=== PATIENT | female | born 1985 | race African-American/Black ===

== ENCOUNTER 2022-01-13 11:56 | Day surgery (SDC) | payer OTHER ==
[~2022-01-13] VITALS: Ht 160 cm; Wt 62.1 kg
[~2022-01-13 11:56] MED LIST: NS 1,000 ML IV ONE; PANT40TA29 PO
[2022-01-13] MEDS ORDERED: fentaNYL 100 MCG/2 ML INJECTION As Ordered ONE (13:55)
[2022-01-13] MEDS ORDERED: LIDOCAINE 2% 100MG/5ML SDV (FOR ANES.) As Ordered ONE (13:55)
[2022-01-13] MEDS ORDERED: propofoL 200 MG/20 ML VIAL As Ordered ONE (13:55)
[2022-01-13 14:35] VITALS: BP 124/56
== END 2022-01-13 14:44 | disposition home or self-care (01) ==
LOC: M OPP 11:56
PROVIDERS: ATTEND Internal Medicine Gastroenterology
DX: K29.60 Other gastritis without bleeding (principal); K22.89 Other specified disease of esophagus; R12 Heartburn; F41.9 Anxiety disorder, unspecified; Z79.899 Other long term (current) drug therapy
CPT/HCPCS: 43239; 88305; J3010

== ENCOUNTER 2022-04-14 14:30 | Inpatient (IN) | payer OTHER ==
[~2022-04-14] VITALS: Ht 154.9 cm; Wt 60.6 kg
[~2022-04-14 14:30] MED LIST changes: -NS 1,000 ML IV ONE
[2022-04-14 15:12] LABS: HEMATOCRIT 38.8 % (36.0-47.0); HEMOGLOBIN 12.6 g/dl (12.0-15.5); MEAN CORPUSCULAR HEMOGLOBIN 26.9 pg (27.0-33.0); MEAN CORPUSCULAR HGB CONC 32.5 g/dl (32.0-36.5); MEAN CORPUSCULAR VOLUME 82.9 fl (80.0-96.0); PLATELET COUNT, AUTOMATED 295 10^3/uL (150-450); RED BLOOD COUNT 4.68 10^6/uL (4.00-5.40); WHITE BLOOD COUNT 7.3 10^3/uL (4.0-10.0)
[2022-04-14 15:52] LABS: ETHYL ALCOHOL (ETHANOL) 0.004 % (0.000-0.010)
[2022-04-14 15:53] LABS: ACETAMINOPHEN LEVEL < 2.0 UG/ML (10.0-20.0)
[2022-04-14 15:54] LABS: ALBUMIN 4.1 G/DL (3.2-5.2); ALKALINE PHOSPHATASE 106 U/L (46-116); ALT/SGPT 29 U/L (7.0-40); AST/SGOT 30 U/L (<34); BILIRUBIN,DIRECT 0.1 MG/DL (<0.4); BILIRUBIN,TOTAL 0.4 MG/DL (0.3-1.2); BLOOD UREA NITROGEN 16 MG/DL (9-23); CALCIUM LEVEL 9.5 MG/DL (8.5-10.1); CARBON DIOXIDE LEVEL 22 MMOL/L (20-31); CHLORIDE LEVEL 107 MMOL/L (98-107); CREATININE FOR GFR 0.69 MG/DL (0.55-1.30); GLOMERULAR FILTRATION RATE > 60.0 (>60); GLUCOSE, FASTING 98 MG/DL (60-100); POTASSIUM SERUM 4.2 MMOL/L (3.5-5.1); SALICYLATE LEVEL < 3.0 MG/DL (<30); SODIUM LEVEL 138 MMOL/L (136-145); TOTAL PROTEIN 8.1 G/DL (5.7-8.2)
[2022-04-14 15:56] LABS: THYROID STIMULATING HORMONE 0.714 uIU/ML (0.55-4.78)
[2022-04-14 16:06] LABS: HCG, SERUM QUALITATIVE NEGATIVE (NEGATIVE)
[2022-04-14] MEDS ORDERED: ONDANSETRON 4MG ORAL DISINTEGRATING TAB PO ONE (16:50)
[2022-04-14 18:05] LABS: APPEARANCE, URINE MANUAL CLEAR (CLEAR); COLOR, URINE MANUAL YELLOW (YELLOW)
[2022-04-14 18:07] LABS: BILIRUBIN, URINE MANUAL NEGATIVE (NEGATIVE); BLOOD URINE MANUAL NEGATIVE (NEGATIVE); GLUCOSE, URINE (UA) MANUAL NEGATIVE (NEGATIVE); KETONE, URINE MANUAL NEGATIVE (NEGATIVE); LEUKOCYTE ESTERASE, URINE MAN POSITIVE (NEGATIVE); NITRITE, URINE MANUAL NEGATIVE (NEGATIVE); PROTEIN, URINE MANUAL NEGATIVE (NEGATIVE); SPECIFIC GRAVITY,URINE MANUAL 1.015 (1.002-1.035); UROBILINOGEN, URINE MANUAL NORMAL (NORMAL)
[2022-04-14 18:09] LABS: AMPHETAMINES LEVEL URINE NEGATIVE (NEGATIVE); BENZODIAZEPINES URINE NEGATIVE (NEGATIVE)
[2022-04-14 18:10] LABS: BARBITURATES URINE NEGATIVE (NEGATIVE); CANNABINOIDS URINE NEGATIVE (NEGATIVE); COCAINE METABOLITE URINE NEGATIVE (NEGATIVE); METHADONE URINE NEGATIVE (NEGATIVE); OPIATES URINE NEGATIVE (NEGATIVE); PHENCYCLIDINE URINE NEGATIVE (NEGATIVE)
[2022-04-14 18:13] LABS: RSV AMPLIFICATION NEGATIVE (NEGATIVE)
[2022-04-14 18:15] LABS: BACTERIA, URINE SMALL AMOUNT; HYALINE CAST, URINE 0-1 /lpf (0-1); MUCUS, URINE LARGE AMOUNT (NEGATIVE); SQUAMOUS EPITHELIAL CELL URINE LARGE AMOUNT /hpf (SMALL AMT)
[2022-04-14] MEDS ORDERED: MULTTAB20 PO (18:58)
[2022-04-14] MEDS ORDERED: VENL75CA47 PO (18:58)
[2022-04-14] MEDS ORDERED: VITA100093 PO (18:58)
[2022-04-14] MEDS ORDERED: BISACODYL 5MG TAB PO ONE (21:10)
[2022-04-15] MEDS ORDERED: VITA500038 PO (08:49)
[2022-04-15] MEDS ORDERED: PANT20TA6 PO (08:49)
[2022-04-15] MEDS ORDERED: VENL37.598 PO (08:49)
[2022-04-15] MEDS ORDERED: TOPI50TA9 PO (08:49)
[2022-04-15] MEDS ORDERED: MAXA10TA15 PO (08:49)
[2022-04-15] MEDS ORDERED: B-2100TA PO (08:49)
[2022-04-15] MEDS ORDERED: VENL150C43 PO (08:49)
[2022-04-15] MEDS ORDERED: HOME MED LIST COMPLETE! XX SCH (08:50)
[2022-04-15] MEDS ORDERED: ACETAMINOPHEN TAB 650MG DOSE (2X325MG) PO PRN (17:30)
[2022-04-15] MEDS ORDERED: MAALOX 30 ML SUSP *UDC PO PRN (17:30)
[2022-04-15] MEDS ORDERED: NICOTINE 21MG/24HR 1 EA TRANSDERMAL TD PRN (17:30)
[2022-04-15] MEDS ORDERED: MOM 30ML SUSPENSION UDC PO PRN (17:30)
[2022-04-15] MEDS ORDERED: traZODone 50 MG TAB PO PRN (17:30)
[2022-04-15 19:22] VITALS: BP 145/76
[2022-04-16 06:18] VITALS: BP 143/65
[2022-04-16] MEDS ORDERED: VENLAFAXINE **XR** 75MG CAPSULE PO SCH (09:00)
[2022-04-16] MEDS: PANTOPRAZOLE 20 MG TAB PO SCH ×2 (09:00→15:23)
[2022-04-16] MEDS ORDERED: VENLAFAXINE **XR** 37.5 MG CAPSULE PO SCH (09:00)
[2022-04-16] MEDS: VITAMIN D 1,000 INTERNATIONAL UNITS TABLET PO SCH (14:16)
[2022-04-16] MEDS: PRENATAL VITAMINS CHEWABLE TABLET PO SCH (15:23)
[2022-04-16] MEDS: VENLAFAXINE **XR** 75MG CAPSULE PO SCH (15:23)
[2022-04-16] MEDS ORDERED: EFFE75CA2 PO (15:41)
[2022-04-16 16:40] VITALS: BP 120/80
[2022-04-16] MEDS ORDERED: ALBUTEROL 90 MCG/ACT 8GM HFA INHALER INH ONE (17:55)
[2022-04-16] MEDS: TOPIRAMATE (TopAMAX) 25 MG TAB PO SCH (21:03)
[2022-04-16] MEDS: ALBUTEROL 90 MCG/ACT 8GM HFA INHALER INH SCH (21:04)
[2022-04-17 06:18] VITALS: BP 106/64
[2022-04-17] MEDS: ALBUTEROL 90 MCG/ACT 8GM HFA INHALER INH SCH ×4 (07:58→21:49)
[2022-04-17] MEDS: VITAMIN D 1,000 INTERNATIONAL UNITS TABLET PO SCH (07:59)
[2022-04-17] MEDS: PRENATAL VITAMINS CHEWABLE TABLET PO SCH (07:59)
[2022-04-17] MEDS: PANTOPRAZOLE 20 MG TAB PO SCH (07:59)
[2022-04-17] MEDS: VENLAFAXINE **XR** 75MG CAPSULE PO SCH (08:00)
[2022-04-17] MEDS ORDERED: OMEPRAZOLE 20MG CAP PO SCH (09:00)
[2022-04-17] MEDS ORDERED: VITAMIN D 1,000 INTERNATIONAL UNITS TABLET PO SCH (09:00)
[2022-04-17] MEDS ORDERED: RAMELTEON 8 MG TAB (ROZEREM) PO PRN (11:20)
[2022-04-17 16:47] VITALS: BP 123/67
[2022-04-17] MEDS: TOPIRAMATE (TopAMAX) 25 MG TAB PO SCH (21:51)
[2022-04-18 06:39] VITALS: BP 125/62
[2022-04-18] MEDS: ALBUTEROL 90 MCG/ACT 8GM HFA INHALER INH SCH ×4 (07:47→21:42)
[2022-04-18] MEDS: VENLAFAXINE **XR** 75MG CAPSULE PO SCH (07:48)
[2022-04-18] MEDS: VITAMIN D 1,000 INTERNATIONAL UNITS TABLET PO SCH (07:48)
[2022-04-18] MEDS: PANTOPRAZOLE 20 MG TAB PO SCH (07:48)
[2022-04-18] MEDS: PRENATAL VITAMINS CHEWABLE TABLET PO SCH (07:48)
[2022-04-18 16:19] VITALS: BP 129/77
[2022-04-18] MEDS: TOPIRAMATE (TopAMAX) 25 MG TAB PO SCH (21:42)
[2022-04-19 06:08] VITALS: BP 136/66
[2022-04-19] MEDS: PANTOPRAZOLE 20 MG TAB PO SCH (08:22)
[2022-04-19] MEDS: VITAMIN D 1,000 INTERNATIONAL UNITS TABLET PO SCH (08:22)
[2022-04-19] MEDS: PRENATAL VITAMINS CHEWABLE TABLET PO SCH (08:22)
[2022-04-19] MEDS: ALBUTEROL 90 MCG/ACT 8GM HFA INHALER INH SCH ×4 (08:22→21:02)
[2022-04-19] MEDS: VENLAFAXINE **XR** 75MG CAPSULE PO SCH (08:22)
[2022-04-19 18:30] VITALS: BP 144/88
[2022-04-19] MEDS: TOPIRAMATE (TopAMAX) 25 MG TAB PO SCH (21:02)
[2022-04-20 06:04] VITALS: BP 132/62
[2022-04-20] MEDS: VENLAFAXINE **XR** 75MG CAPSULE PO SCH (08:21)
[2022-04-20] MEDS: VITAMIN D 1,000 INTERNATIONAL UNITS TABLET PO SCH (08:21)
[2022-04-20] MEDS: ALBUTEROL 90 MCG/ACT 8GM HFA INHALER INH SCH ×4 (08:22→21:52)
[2022-04-20] MEDS: PRENATAL VITAMINS CHEWABLE TABLET PO SCH (08:22)
[2022-04-20] MEDS: PANTOPRAZOLE 20 MG TAB PO SCH (08:22)
[2022-04-20 18:14] VITALS: BP 127/76
[2022-04-20] MEDS: TOPIRAMATE (TopAMAX) 25 MG TAB PO SCH (21:53)
[2022-04-21 06:15] VITALS: BP 117/58
[2022-04-21] MEDS: ALBUTEROL 90 MCG/ACT 8GM HFA INHALER INH SCH (08:48)
[2022-04-21] MEDS: VENLAFAXINE **XR** 75MG CAPSULE PO SCH (08:50)
[2022-04-21] MEDS: PRENATAL VITAMINS CHEWABLE TABLET PO SCH (08:50)
[2022-04-21] MEDS: PANTOPRAZOLE 20 MG TAB PO SCH (08:50)
[2022-04-21] MEDS: VITAMIN D 1,000 INTERNATIONAL UNITS TABLET PO SCH (08:50)
[2022-04-21] MEDS ORDERED: EFFE75CA2 PO (09:32)
== END 2022-04-21 11:16 | disposition home or self-care (01) | DRG 881 ==
LOC: M ED 14:30 → EDBD 14:30 → M ED INP 04-15 17:29 → M PSY 04-15 18:58
PROVIDERS: ADMIT Psychiatry & Neurology Psychiatry; ATTEND Psychiatry & Neurology Psychiatry
DX: F32.A Depression, unspecified (principal); F43.21 Adjustment disorder with depressed mood; F17.200 Nicotine dependence, unspecified, uncomplicated; R06.02 Shortness of breath; R07.89 Other chest pain; F41.9 Anxiety disorder, unspecified; Z56.6 Other physical and mental strain related to work; Z79.899 Other long term (current) drug therapy

== ENCOUNTER 2022-09-18 00:58 | Emergency (ER) | payer OTHER ==
[~2022-09-18] VITALS: Ht 160 cm; Wt 61.3 kg
[~2022-09-18 00:58] MED LIST changes: +B-2100TA PO; +EFFE75CA2 PO; +MULTTAB20 PO; +PANT20TA6 PO; +RIZA10TA66 PO; +TOPI-254 PO; +VENL150C43 PO; +VENL37.598 PO; +VENL75CA47 PO; +VITA100093 PO; +VITA500038 PO
[2022-09-18 00:59] VITALS: BP 138/70; TEMP 97; O2SAT 99
[2022-09-18] MEDS ORDERED: ZOLO50TA PO (01:04)
== END 2022-09-18 03:13 | disposition left against medical advice (07) ==
LOC: M ED 00:58
DX: Z53.21 Procedure and treatment not carried out due to patient leaving prior to being seen by health care provider (principal)

== ENCOUNTER 2023-01-04 12:24 | Outpatient (CLI) | payer OTHER ==
[~2023-01-04] VITALS: Ht 160 cm; Wt 67.1 kg
[~2023-01-04 12:24] MED LIST changes: +ALBUTEROL SULFATE 2.5MG/0.5ML INH NEB SOLN INH PRN; +EPINEPHrine INJ 1 MG/ML 1ML AMP IM PRN; +IRON SUCROSE 25 MG in NS 23.75 ML IV ONE; +IRON SUCROSE 275 MG in NS 250 ML IV ONE; +NS 1,000 ML IV SCH; +ZOLO50TA PO; +diphenhydrAMINE 50MG/ML VIAL IV PRN; +methylPREDNISolone 125MG 2ML VIAL IV PRN
[2023-01-04 12:25] VITALS: BP 122/56; O2SAT 100
[2023-01-04 15:45] VITALS: BP 128/60; O2SAT 100
== END 2023-01-04 15:45 | disposition home or self-care (01) ==
LOC: M INFU 12:24
PROVIDERS: ATTEND Nurse Practitioner Women's Health
DX: D64.9 Anemia, unspecified (principal)
CPT/HCPCS: 96365; 96366; J1756

== ENCOUNTER 2023-01-11 13:20 | Outpatient (CLI) | payer OTHER ==
[~2023-01-11] VITALS: Ht 160 cm; Wt 66.5 kg
[~2023-01-11 13:20] MED LIST changes: -IRON SUCROSE 25 MG in NS 23.75 ML IV ONE; -IRON SUCROSE 275 MG in NS 250 ML IV ONE
[2023-01-11] MEDS ORDERED: IRON SUCROSE 300 MG in NS 250 ML OVER 90 MIN. IV ONE (13:30)
[2023-01-11 13:40] VITALS: BP 113/58; O2SAT 100
[2023-01-11 16:40] VITALS: BP 123/56; O2SAT 100
== END 2023-01-11 16:40 ==
LOC: M INFU 13:20
PROVIDERS: ATTEND Nurse Practitioner Women's Health
DX: D64.9 Anemia, unspecified (principal)
CPT/HCPCS: 96365; 96366; J1756

== ENCOUNTER 2023-01-20 10:00 | Outpatient (CLI) | payer OTHER ==
[~2023-01-20] VITALS: Ht 160 cm; Wt 66.5 kg
[~2023-01-20 10:00] MED LIST changes: +IRON SUCROSE 300 MG in NS 250 ML OVER 90 MIN. IV ONE
[2023-01-20 12:40] VITALS: BP 122/68; O2SAT 98
== END 2023-01-20 12:40 ==
LOC: M INFU 10:00
PROVIDERS: ATTEND Nurse Practitioner Women's Health
DX: D64.9 Anemia, unspecified (principal)
CPT/HCPCS: 96365; J1756

== ENCOUNTER 2023-03-01 09:30 | Outpatient (CLI) | payer OTHER ==
[~2023-03-01] VITALS: Ht 160 cm; Wt 70.3 kg
[~2023-03-01 09:30] MED LIST changes: -ALBUTEROL SULFATE 2.5MG/0.5ML INH NEB SOLN INH PRN; -EPINEPHrine INJ 1 MG/ML 1ML AMP IM PRN; -IRON SUCROSE 300 MG in NS 250 ML OVER 90 MIN. IV ONE; -NS 1,000 ML IV SCH; +TOPI-21 PO; -TOPI-254 PO; -diphenhydrAMINE 50MG/ML VIAL IV PRN; -methylPREDNISolone 125MG 2ML VIAL IV PRN
[2023-03-01 09:56] VITALS: BP 133/70
[2023-03-01] MEDS ORDERED: HOME MED LIST COMPLETE! XX SCH (10:05)
[2023-03-01 11:04] VITALS: BP 119/70
== END 2023-03-01 13:20 | disposition home or self-care (01) ==
LOC: M LDO 09:30
PROVIDERS: ATTEND Obstetrics & Gynecology
DX: O36.8330 Maternal care for abnormalities of the fetal heart rate or rhythm, third trimester, not applicable or unspecified (principal); Z3A.36 36 weeks gestation of pregnancy
CPT/HCPCS: 59025; 76815; 76819; 76820; G0463

== ENCOUNTER 2023-03-05 00:32 | Inpatient (IN) | payer OTHER ==
[2023-03-05] VITALS (13 sets, daily range): BP systolic 98–157; BP diastolic 60–80; O2SAT 98
[~2023-03-05] VITALS: Ht 160 cm; Wt 68.9 kg
[2023-03-05 02:58] LABS: APPEARANCE, URINE HAZY (CLEAR); BACTERIA, URINE AUTO NEGATIVE (NEGATIVE); BILIRUBIN, URINE AUTO NEGATIVE (NEGATIVE); BLOOD, URINE BLOOD NEGATIVE (NEGATIVE); COLOR, URINE YELLOW (YELLOW); GLUCOSE, URINE (UA) AUTO 2+ mg/dL (NEGATIVE); KETONE, URINE AUTO NEGATIVE (NEGATIVE); LEUKOCYTE ESTERASE, URINE AUTO 2+ (NEGATIVE); MUCUS, URINE SMALL (NEGATIVE); NITRITE, URINE AUTO NEGATIVE (NEGATIVE); PROTEIN, URINE AUTO NEGATIVE (NEGATIVE); RBC, URINE AUTO 1 /HPF (0-3); SQUAMOUS EPITHELIAL CELL UR AU 3 /HPF (0-6); UROBILINOGEN, URINE AUTO 0.2 mg/dL (0.0-2.0); WBC, URINE AUTO 46 /HPF (0-3)
[2023-03-05] MEDS ORDERED: METHYLERGONOVINE MALEATE 0.2MG/ML 1ML VIAL IM PRN ×2 (03:00→07:50)
[2023-03-05] MEDS ORDERED: OXYTOCIN DRIP 30 UNITS in IV 1 EA IV PRN ×4 (03:00)
[2023-03-05] MEDS ORDERED: LR 1,000 ML IV SCH ×2 (03:00→07:50)
[2023-03-05] MEDS ORDERED: LIDOCAINE 1% MDV 20ML VIAL INFIL PRN (03:00)
[2023-03-05] MEDS ORDERED: TRANEXAMIC ACID INJection 1,000 MG in NS 100 ML IV PRN (03:00)
[2023-03-05] MEDS ORDERED: OXYTOCIN DRIP 30 UNITS in IV 1 EA IV SCH ×2 (03:00→07:50)
[2023-03-05 03:50] LABS: HEMATOCRIT 35.2 % (36.0-47.0); HEMOGLOBIN 11.5 g/dl (12.0-15.5); MEAN CORPUSCULAR HEMOGLOBIN 27.6 pg (27.0-33.0); MEAN CORPUSCULAR HGB CONC 32.7 g/dl (32.0-36.5); MEAN CORPUSCULAR VOLUME 84.6 fl (80.0-96.0); PLATELET COUNT, AUTOMATED 152 10^3/uL (150-450); RED BLOOD COUNT 4.16 10^6/uL (4.00-5.40)
[2023-03-05] MEDS ORDERED: RHOGAM 300MCG (1500IU) INJ IM SCH (07:50)
[2023-03-05] MEDS ORDERED: IBUPROFEN 600MG TAB PO PRN (07:50)
[2023-03-05] MEDS ORDERED: ONDANSETRON 4MG 2ML VIAL IV PRN (07:50)
[2023-03-05] MEDS ORDERED: ACETAMINOPHEN TAB 650MG DOSE (2X325MG) PO PRN (07:50)
[2023-03-05] MEDS ORDERED: METOCLOPRAMIDE INJ 10MG/2ML VIAL IV PRN (07:50)
[2023-03-05] MEDS ORDERED: DOCUSATE SODIUM 100MG CAPSULE PO PRN (07:50)
[2023-03-05] MEDS: PRENATAL VITAMINS CHEWABLE TABLET PO SCH (08:08)
[2023-03-05] MEDS: IBUPROFEN 800 MG TAB PO PRN ×2 (08:08→20:13)
[2023-03-05] MEDS: DIBUCAINE 1% OINTMENT 30GM TOP PRN (11:36)
[2023-03-05] MEDS: ACETAMINOPHEN 500 MG TAB PO PRN (11:36)
[2023-03-05] MEDS ORDERED: SLF 3 ML SYR IV PRN (12:45)
[2023-03-05] MEDS: SLF 3 ML SYR IV SCH ×2 (14:00→22:00)
[2023-03-06] MEDS: SLF 3 ML SYR IV SCH (05:53)
[2023-03-06 06:00] VITALS: BP 128/59; O2SAT 99
[2023-03-06 07:08] LABS: MEAN CORPUSCULAR HEMOGLOBIN 28.6 pg (27.0-33.0); MEAN CORPUSCULAR HGB CONC 33.3 g/dl (32.0-36.5); MEAN CORPUSCULAR VOLUME 85.7 fl (80.0-96.0); PLATELET COUNT, AUTOMATED 150 10^3/uL (150-450); WHITE BLOOD COUNT 14.2 10^3/uL (4.0-10.0)
[2023-03-06] MEDS: PRENATAL VITAMINS CHEWABLE TABLET PO SCH (08:57)
[2023-03-06] MEDS: DIBUCAINE 1% OINTMENT 30GM TOP PRN (08:58)
[2023-03-06] MEDS: ACETAMINOPHEN 500 MG TAB PO PRN (08:58)
[2023-03-06] MEDS ORDERED: SERTRALINE HCL 50 MG TAB PO SCH (09:00)
[2023-03-07] MEDS ORDERED: MEASLES,MUMPS,RUBELLA VACCINE INJ (MMR-II) SC.IMMUN ONE (09:00)
== END 2023-03-06 12:15 | disposition home or self-care (01) | DRG 807 ==
LOC: M LDO 00:32 → M LDI 02:56 → M OBS 10:13
PROVIDERS: ADMIT Obstetrics & Gynecology; ATTEND Obstetrics & Gynecology
PROC: 10E0XZZ Delivery of Products of Conception, External Approach (ICD-10-PCS; principal; 2023-03-05)
DX: O42.013 Preterm premature rupture of membranes, onset of labor within 24 hours of rupture, third trimester (principal); Z37.0 Single live birth; F32.A Depression, unspecified; O24.420 Gestational diabetes mellitus in childbirth, diet controlled; Z3A.36 36 weeks gestation of pregnancy; O99.344 Other mental disorders complicating childbirth

== ENCOUNTER → 2023-08-12 | Outpatient (REF) | LOC: M PLAIMG 09:54 | PROVIDERS: ATTEND Internal Medicine | DX: R52 Pain, unspecified (principal) ==